=== PATIENT | female | born 1955 | race Caucasian/White ===

== ENCOUNTER → 2024-05-10 10:36 | Outpatient (REF) | payer OTHER, SELFPAY | LOC: RAD 10:36 | PROVIDERS: ATTENDING PHYSICIAN Nurse Practitioner Family; FAMILY PHYSICIAN Internal Medicine | DX: M25.551 Pain in right hip (principal) | CPT/HCPCS: 73502 ==

== ENCOUNTER → 2024-05-26 08:37 | Outpatient (REF) | payer OTHER, SELFPAY | LOC: WDC 08:37 | PROVIDERS: ATTENDING PHYSICIAN Internal Medicine | DX: Z12.31 Encounter for screening mammogram for malignant neoplasm of breast (principal) | CPT/HCPCS: 77063; 77067 ==

== ENCOUNTER 2024-06-27 10:16 | Outpatient (RCR) | payer OTHER, SELFPAY | END 2024-06-27 23:59 | disposition home or self-care (01) | LOC: RPT 10:16 | PROVIDERS: ATTENDING PHYSICIAN Nurse Practitioner Family; FAMILY PHYSICIAN Internal Medicine | DX: M25.551 Pain in right hip (principal); Z73.6 Limitation of activities due to disability; R26.2 Difficulty in walking, not elsewhere classified; M54.9 Dorsalgia, unspecified | CPT/HCPCS: 97110; 97162 ==

== ENCOUNTER 2024-07-20 08:51 | Outpatient (RCR) | payer OTHER, SELFPAY | END 2024-07-20 23:59 | disposition home or self-care (01) | LOC: RPT 08:51 | PROVIDERS: ATTENDING PHYSICIAN Nurse Practitioner Family; FAMILY PHYSICIAN Internal Medicine | DX: M25.551 Pain in right hip (principal); Z73.6 Limitation of activities due to disability; R26.2 Difficulty in walking, not elsewhere classified; M54.9 Dorsalgia, unspecified | CPT/HCPCS: 97010; 97110; 97112 ==

== ENCOUNTER 2024-08-03 09:13 | Outpatient (RCR) | payer OTHER, SELFPAY | END 2024-08-03 23:59 | disposition home or self-care (01) | LOC: RPT 09:13 | PROVIDERS: ATTENDING PHYSICIAN Nurse Practitioner Family; FAMILY PHYSICIAN Internal Medicine | DX: M25.551 Pain in right hip (principal); Z73.6 Limitation of activities due to disability; M54.9 Dorsalgia, unspecified; R26.2 Difficulty in walking, not elsewhere classified | CPT/HCPCS: 97110 ==

== ENCOUNTER → 2024-11-08 12:52 | Outpatient (REF) | payer OTHER, SELFPAY | LOC: HWRCS 12:52 | PROVIDERS: ATTENDING PHYSICIAN Internal Medicine | DX: R55 Syncope and collapse (principal) | CPT/HCPCS: 93306 ==